=== PATIENT | male | born 1975 | race Caucasian/White ===

== ENCOUNTER → 2021-03-25 | Outpatient (REF) | payer OTHER | LOC: M LAB 14:32 | PROVIDERS: ATTEND Nurse Practitioner Adult Health | DX: Z01.84 Encounter for antibody response examination (principal) ==

== ENCOUNTER → 2021-07-31 | Outpatient (REF) | LOC: M EMP 14:24 | PROVIDERS: ATTEND Family Medicine | DX: Z11.52 Encounter for screening for COVID-19 (principal) ==

== ENCOUNTER → 2021-08-04 | Outpatient (REF) | LOC: M EMP 16:48 | PROVIDERS: ATTEND Family Medicine | DX: Z20.822 Contact with and (suspected) exposure to COVID-19 (principal) ==